=== PATIENT | male | born 1945 | race Caucasian/White ===

== ENCOUNTER 2018-08-14 14:14 | Outpatient (CLI) | payer MEDICARE, OTHER | END 2018-08-14 14:15 | LOC: RAD 14:14 | PROVIDERS: ATTEND Orthopaedic Surgery | DX: Z01.810 Encounter for preprocedural cardiovascular examination (principal) ==

== ENCOUNTER 2018-10-27 08:54 | Outpatient (CLI) | payer MEDICARE, OTHER ==
--- NOTE | 2018-10-27 13:08 | Diagnostic Imaging Report ---
GEORGETTE SPRINGER (PHLEBOTOMY MANAGER) - OP [facility] [address] [facility] [address] [place], [place]. [address] Report Submission Date: Oct 27, 2018 9:34:04 AM CDT Patient Study Name: LYDIA THOMAS Date: Oct 27, 2018 9:05:16 AM CDT Modality Type: CT\SR Gender: M Description: CT ABD PELVIS W/O CO : 41 Institution: [facility] Physician: GEORGETTE SPRINGER (PHLEBOTOMY MANAGER) - OP Examination: CT Abdomen/pelvis History: CT A/P W/O, HEMATURIA, BILATERAL FLANK PAIN. PT STATES WORSENING PAIN IN THE LAST WEEK, AND FREQUENT URINATION Comparison exams: None available Technique: CT Abdomen/pelvis without IV protocol. Findings: Prominence of the left kidney when compared with the right. Numerous left cortical cyst. Left perinephric stranding. Large calyceal calcification measuring 13 mm. Dilation of the left ureter in its course through the abdomen and pelvis. No definite calcification identified centrally. Streak artifact from hip prosthesis limits evaluation of the bladder margin. Right kidney without suspicious calcification. No abnormal dilation of the right ureter. Bladder margin not well visualized. Liver demonstrates cysts. Spleen, adrenals, pancreas and gallbladder are without gross irregularity given exam technique. No gallstone. Abdominal aorta without aneurysm. Peripheral atherosclerotic disease. Cardiac silhouette is not enlarged. No pericardial effusion. Bowel unopacified limiting evaluation. No abnormal dilation. Stool within the large bowel limiting sensitivity. No mesenteric inflammatory changes or free fluid. Appendix is visualized and is without inflammatory changes. Hiatal hernia. Osseous structures demonstrate degenerative changes. Bilateral hip prostheses. Lung bases without infiltrate. No effusion. Impression: Large left nephrolithiasis. Dilation of the left ureter in its coarse through the abdomen and pelvis however no definite stone identified though visualization of the bladder margin/ureterovesicular junction is limited due to artifact from bilateral hip prostheses - nonvisualized stone or stricture cannot be excluded. No acute upper abdominal organ inflammatory process. No abnormal bowel dilation or inflammation. No gallstone. No lung base consolidation or effusion. Electronically signed on Oct 27, 2018 9:34:04 AM CDT by: Raymond WHITNEY
== END 2018-10-27 09:10 ==
LOC: RAD 08:54
PROVIDERS: ATTEND Nurse Practitioner Family
DX: N20.0 Calculus of kidney (principal); N28.82 Megaloureter; R31.9 Hematuria, unspecified; R10.9 Unspecified abdominal pain
CPT/HCPCS: 74176